=== PATIENT | male | born 1975 | race Caucasian/White ===

== ENCOUNTER 2017-01-07 20:05 | Emergency (ER) | payer OTHER ==
[~2017-01-07] VITALS: Ht 175.3 cm; Wt 57.1 kg
[2017-01-07 20:09] VITALS: Ht 175.3 cm; Wt 57.1 kg
[2017-01-07 21:21] LABS: HEMATOCRIT 41.2 % (42-52); MEAN CELL VOLUME 89.4 fL (80-100); MEAN CORPUSCULAR HEMOGLOBIN 31.5 pg (25-34); MEAN CORPUSCULAR HGB CONC 35.2 g/dl (32-36); MEAN PLATELET VOLUME 11.7 fL (7.4-10.4); PLATELET COUNT 165 K/uL (130-400); RED BLOOD COUNT 4.61 M/uL (4.7-6.1); WHITE BLOOD COUNT 6.54 K/uL (4.8-10.8)
--- NOTE | 2017-01-07 21:28 | EMERGENCY ROOM VISIT NOTE ---
History Report prepared by Cathi: Waleska Cason Under the Supervision of: Dr. Riki Aguirre M.D. First contact with patient: 21:15 Chief Complaint: CHEST PAIN Stated Complaint: CHEST PAIN Nursing Triage Summary: "felt something go through my heart" last night; headache and chest pain today. History of Present Illness The patient is a 41 year old male who presents to the Emergency Room with complaints of constant left sided chest pain starting last night. He reports a pain intensity of 5/10. He was driving when he had a sudden onset of his pain. He describes it as "something going through the heart." He has some shortness of breath with exertion. He also complains of a headache. The patient denies any recent chills, cold-like symptoms, or any other complaints. He has been smoking about a pack a day of cigarettes for about 20 years. Source of History: patient Onset: last night Position: chest (left) Symptom Intensity: 5/10 Quality: other ("something going through the heart") Timing: constant Associated Symptoms: + SOB (with exertion), + headache, No chills Review of Systems All systems have been listed, reviewed, and are negative other than those previously mentioned. Please see Additional Medical History Sheet. Past Medical & Surgical Medical Problems: (1) No Known Active Medical Problems Social History Problems: (1) Current every day smoker Family History Cancer Social History Smoking Status: Current Every Day Smoker Marital Status: Occupation Status: employed Current/Historical Medications Scheduled Ibuprofen Tab (Motrin), 600 MG PO Q6 Scheduled PRN Acetaminophen (Tylenol), 1,000 MG PO Q6 PRN for Pain Oxycodone Immediate Rel Tab (Roxicodone Ir), 1-2 TAB PO Q4H PRN for Severe Pain Allergies Coded Allergies: Penicillins (Unverified Allergy, Severe, HIVES, 12/28/09) Physical Exam Vital Signs Date Time Temp Pulse Resp B/P Pulse Ox O2 Delivery O2 Flow Rate FiO2 01/08/17 00:25 36.6 65 18 104/63 98 01/08/17 00:13 65 01/08/17 00:00 66 18 104/63 98 Room Air 01/07/17 22:49 76 18 99/64 98 Room Air 01/07/17 20:53 100 Room Air 01/07/17 20:41 71 01/07/17 20:09 36.6 82 18 120/79 99 Room Air Physical Exam GENERAL: Patient awake, alert, oriented x 3. Patient follows commands. Patient does not appear toxic. Patient is adequately hydrated and well- nourished. SKIN: No erythema, pallor, cyanosis or rash HEENT: Normal head, pupils equal, reactive to light and accommodation. LUNGS: Decreased breath sounds in right posterior chest. No wheezes, no rales, no rhonchi. HEART: No murmurs. No gallops. No rubs ABDOMEN: No masses, no rebound, no hepatomegaly or splenomegaly. EXTREMITIES: No signs of trauma. No pedal or pretibial edema. No calf or thigh tenderness. NEUROLOGIC: Cranial nerves II-XII within normal limits. No gross motor sensory function deficits. Medical Decision & Procedures ER Provider Diagnostic Interpretation: X-ray results as stated below per my interpretation and radiologist interpretation. CT results as stated below per my review and radiologist interpretation: CHEST CT WITH CONTRAST CT DOSE: 233.81 mGy.cm HISTORY: Chest pain. Dyspnea. chest pain TECHNIQUE: Multiaxial CT images of the chest were performed following the intravenous administration of contrast. COMPARISON: None. FINDINGS: The lungs are clear. The mediastinal vascular structures are within normal limits. No mediastinal or hilar lymphadenopathy. No pleural effusion or pneumothorax. Limited views of the upper abdomen demonstrate a normal liver and spleen. Moderate emphysematous change. No focal infiltrate. IMPRESSION: No significant abnormality identified within the chest. Moderate emphysematous change. Electronically signed by: Macho Arriaga M.D. 01/07/2017 10:51 PM Dictated Date/Time: 01/07/2017 10:50 PM CHEST ONE VIEW PORTABLE CLINICAL HISTORY: CP dyspnea COMPARISON STUDY: None FINDINGS: The bones soft tissues and hemidiaphragms are normal. The cardiomediastinal silhouette is normal. The lungs are clear. The pulmonary vasculature is normal. IMPRESSION: Negative chest. Electronically signed by: Macho Arriaga M.D. 01/07/2017 9:25 PM Dictated Date/Time: 01/07/2017 9:24 PM Laboratory Results 01/07/17 21:05 01/07/17 21:05 Test 01/07/17 21:05 01/07/17 21:17 Red Blood Count 4.61 M/uL (4.7-6.1) Mean Corpuscular Volume 89.4 fL (80-100) Mean Corpuscular Hemoglobin 31.5 pg (25-34) Mean Corpuscular Hemoglobin Concent 35.2 g/dl (32-36) RDW Standard Deviation 45.4 fL (36.4-46.3) RDW Coefficient of Variation 13.8 % (11.5-14.5) Mean Platelet Volume 11.7 fL (7.4-10.4) Prothrombin Time 11.7 SECONDS (9.0-12.0) Prothromb Time International Ratio 1.1 (0.9-1.1) Activated Partial Thromboplast Time 28.8 SECONDS (21.0-31.0) Partial Thromboplastin Ratio 1.1 Anion Gap 10.0 mmol/L (3-11) Est Creatinine Clear Calc Drug Dose 78.5 ml/min Estimated GFR () 109.0 Estimated GFR (Non- 94.1 BUN/Creatinine Ratio 4.8 (10-20) Calcium Level 8.7 mg/dl (8.5-10.1) Total Bilirubin 0.8 mg/dl (0.2-1) Aspartate Amino Transf (AST/SGOT) 13 U/L (15-37) Alanine Aminotransferase (ALT/SGPT) 13 U/L (12-78) Alkaline Phosphatase 57 U/L (45-117) Total Creatine Kinase 87 U/L (39-308) Creatine Kinase MB < 0.5 ng/ml (0.5-3.6) Creatine Kinase MB Ratio (0-3.0) Total Protein 6.7 gm/dl (6.4-8.2) Albumin 3.8 gm/dl (3.4-5.0) Globulin 2.9 gm/dl (2.5-4.0) Albumin/Globulin Ratio 1.3 (0.9-2) Bedside Troponin I 0.010 ng/ml (0-0.045) Laboratory results as stated above per my review. ECG Indication: chest pain Rate (beats per minute): 73 Rhythm: normal sinus Findings: no acute ischemic change, no ectopy ED Course 2114: Past medical records reviewed. The patient was evaluated in room C05. A complete history and physical examination was performed. 2129: Zofran Inj 4 mg IV, Morphine Sulfate 6 mg IV 2320: Upon reevaluation, the patient appeared to have improvement of his symptoms. I discussed today's findings with him. He verbalized agreement of the treatment plan. The patient was discharged home. Medical Decision Differential diagnosis includes but is not limited to spontaneous pneumothorax, cardiac ischemia, aortic dissection, pulmonary embolism, pneumonia, musculoskeletal, infections, pericarditis, myocarditis, esophageal rupture, gastrointestinal, as well as others were entertained. Multiple labs come imaging and EKG were performed. The patient's some has some emphysematous changes on his chest X but no evidence of a spontaneous pneumothorax or PE. Troponin is not elevated. EKG reveals no acute findings. The patient does not have a pneumonia. The patient's symptoms are most consistent with pleurodynia. The patient was given pain medication here and will be discharged. He'll be encouraged to use ibuprofen for moderate pain and OxyIR for more severe pain. The patient was encouraged to stop smoking. [place] Drug Monitoring Program Search Results: patient reviewed within database, no issues identified Impression Primary Impression: Pleurodynia Additional Impressions: COPD (chronic obstructive pulmonary disease) Hypokalemia Scribe Attestation The scribe's documentation has been prepared under my direction and personally reviewed by me in its entirety. I confirm that the note above accurately reflects all work, treatment, procedures, and medical decision making performed by me. Departure Information Dispostion Home / Self-Care Prescriptions Oxycodone Immediate Rel Tab (ROXICODONE IR) 5 Mg Tab 1-2 TAB PO Q4H Y for Severe Pain, #20 TAB Prov: Riki Aguirre M.D. 01/08/17 Ibuprofen Tab (MOTRIN) 600 Mg Tab 600 MG PO Q6, #30 TAB Prov: Riki Aguirre M.D. 01/08/17 Referrals Shauna KelleyC.R.N.P. (PCP) Forms HOME CARE DOCUMENTATION FORM, IMPORTANT VISIT INFORMATION Patient Instructions Hypokalemia Buddy, My [facility] Additional Instructions 600 milligrams of ibuprofen every 6 hours until pain has resolved. 1 OxyIR every 4 hours as needed for more severe pain. Do not drive or operate machinery while taking OxyIR. Follow-up with your family physician within the next 5 days. STOP SMOKING Increase potassium in your diet. Problem Qualifiers
[2017-01-07] MEDS ORDERED: OPTIRAY 320 IV PRN (21:30)
[2017-01-07] MEDS ORDERED: MoRPHine SULFATE 10 MG/ML CARP/VIAL IV PRN (21:30)
[2017-01-07] MEDS ORDERED: ONDANSETRON INJ 2 MG/ML 2 ML VIAL IV PRN (21:30)
[2017-01-07 21:39] LABS: INR 1.1 (0.9-1.1); PARTIAL THROMBOPLASTIN RATIO 1.1; PROTHROMBIN TIME (PATIENT) 11.7 SECONDS (9.0-12.0)
[2017-01-07 21:48] LABS: ALT/SGPT 13 U/L (12-78); BLOOD UREA NITROGEN 5 mg/dl (7-18); BUN/CREATININE RATIO 4.8 (10-20); CALCIUM 8.7 mg/dl (8.5-10.1); CARBON DIOXIDE 28 mmol/L (21-32); CHLORIDE 104 mmol/L (98-107); CREATININE 0.98 mg/dl (0.60-1.40); GLUCOSE 96 mg/dl (70-99); POTASSIUM 3.2 mmol/L (3.5-5.1); SODIUM 142 mmol/L (136-145)
[2017-01-07 21:52] LABS: ALB/GLOB RATIO 1.3 (0.9-2); ALKALINE PHOSPHATASE 57 U/L (45-117); AST/SGOT 13 U/L (15-37)
--- NOTE | 2017-01-07 22:52 | DIAGNOSTIC IMAGING REPORT ---
CHEST CT WITH CONTRAST CT DOSE: 233.81 mGy.cm HISTORY: Chest pain. Dyspnea. chest pain TECHNIQUE: Multiaxial CT images of the chest were performed following the intravenous administration of contrast. COMPARISON: None. FINDINGS: The lungs are clear. The mediastinal vascular structures are within normal limits. No mediastinal or hilar lymphadenopathy. No pleural effusion or pneumothorax. Limited views of the upper abdomen demonstrate a normal liver and spleen. Moderate emphysematous change. No focal infiltrate. IMPRESSION: No significant abnormality identified within the chest. Moderate emphysematous change. Electronically signed by: Macho Arriaga M.D. 01/07/2017 10:51 PM Dictated Date/Time: 01/07/2017 10:50 PM
[2017-01-07] MEDS ORDERED: ACET-1256 PO (23:05)
[2017-01-08] MEDS ORDERED: OXYC1TAB3 PO (00:09)
[2017-01-08] MEDS ORDERED: IBUP-1427 PO (00:09)
[2017-01-08 00:25] VITALS: BP 104/63; PULSE 65; TEMP 36.6; O2SAT 98
== END 2017-01-08 00:26 | disposition home or self-care (01) ==
LOC: C.EDB 20:08 → C.EDC 01-08 00:26
DX: R07.81 Pleurodynia (principal); J44.9 Chronic obstructive pulmonary disease, unspecified; E87.6 Hypokalemia; F17.210 Nicotine dependence, cigarettes, uncomplicated